=== PATIENT | male | born 2000 | race African-American/Black ===

== ENCOUNTER 2024-12-26 23:57 | Emergency (ER) | payer OTHER ==
[~2024-12-26] VITALS: Ht 180.3 cm; Wt 74.0 kg
[2024-12-27 00:02] VITALS: TEMP 36.7
[2024-12-27] MEDS: DEXAMETHASONE 4MG TABLET PO ONE (03:12)
[2024-12-27] MEDS: IPRATROPIUM BROMIDE (0.02%) 0.5MG/2.5ML NEB HHN SCH (03:23)
[2024-12-27] MEDS: ALBUTEROL (0.083%) 2.5MG/3ML NEB HHN SCH (03:23)
[2024-12-27 03:27] VITALS: PULSE 69; RESP 16; O2SAT 96
[2024-12-27 03:38] VITALS: PULSE 72; RESP 18; O2SAT 96
[2024-12-27 03:58] VITALS: PULSE 75; RESP 16; O2SAT 95
[2024-12-27] MEDS ORDERED: ALBU18HF2 IH (04:21)
[2024-12-27 04:27] VITALS: BP 139/69; PULSE 71; RESP 12; O2SAT 100
== END 2024-12-27 04:28 | disposition home or self-care (01) ==
LOC: ER 23:57
DX: J45.901 Unspecified asthma with (acute) exacerbation (principal)
CPT/HCPCS: 99283; 94640; J8540; Z7610 ×3